=== PATIENT | male | born 1980 | race African-American/Black ===

== ENCOUNTER 2020-03-08 19:45 | Emergency (ER) | payer MEDICAID, OTHER ==
[~2020-03-08] VITALS: Ht 180.3 cm; Wt 86.2 kg
[~2020-03-08 19:45] MED LIST: IBUPROFEN600 M1 ORAL; LIDODERM700 M1 TOPIC; ROBAXIN-750750 MG PO
[2020-03-08 20:00] VITALS: BP 131/76
[2020-03-08] MEDS ORDERED: Methocarbamol 750mg tab ORAL ONE (20:30)
[2020-03-08 21:00] VITALS: BP 138/65
[2020-03-08] MEDS ORDERED: VOLTAREN100 G1 TP (21:26)
[2020-03-08] MEDS ORDERED: ROBAXIN-750750 MG PO (21:26)
[2020-03-08] MEDS ORDERED: TYLENOL EXTRA500 MG ORAL (21:26)
[2020-03-08 21:30] VITALS: BP 138/65
--- NOTE | 2020-03-08 22:05 | Emergency Room Report ---
History of Present Illness General Chief Complaint: Lower Extremity Injury Source: Patient Present Illness HPI 39 yo Male presents complaining of right leg and back pain. States that he was seen here about 10 days ago for same pain. Was prescribed medications. States it helped somewhat but has not gone away. Dull, 6 out of 10, nonradiating. Denies leg or motor weakness. Denies bowel or bladder incontinence. Pain started after lifting something heavy at work. No other aggravating relieving factors. 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 Patient History Past Medical History: none Past Surgical History: none Pertinent Family History: none Social History: Denies: smoking, alcohol use, drug use Immunizations: UTD Reviewed Nursing Documentation: PMH: Agreed; PSxH: Agreed Nursing Documentation-PMH Past Medical History: No Stated History Review of Systems All Other Systems: negative except mentioned in HPI Physical Exam Vital Signs Date Time Temp Pulse Resp B/P (MAP) Pulse Ox O2 Delivery O2 Flow Rate FiO2 03/08/20 19:56 98.1 89 19 129/89 (102) 99 Room Air Sp02 EP Interpretation: reviewed, normal General Appearance: no apparent distress, alert, GCS 15, non-toxic Head: normocephalic, atraumatic Eyes: bilateral eye normal inspection, bilateral eye PERRL ENT: hearing grossly normal, normal pharynx, no angioedema, normal voice Neck: full range of motion, supple/symm/no masses Respiratory: chest non-tender, lungs clear, normal breath sounds, speaking full sentences Cardiovascular #1: regular rate, rhythm, no edema Cardiovascular #2: 2+ carotid (R), 2+ carotid (L), 2+ radial (R), 2+ radial (L) , 2+ dorsalis pedis (R), 2+ dorsalis pedis (L) Gastrointestinal: normal bowel sounds, non tender, soft, non-distended, no guarding, no rebound Rectal: deferred Genitourinary: normal inspection, no CVA tenderness Musculoskeletal: back normal, normal range of motion, gait/station normal, tender - R buttock, R thigh Neurologic: alert, motor strength/tone normal, oriented x3, sensory intact, responsive, speech normal Psychiatric: judgement/insight normal, memory normal, mood/affect normal, no suicidal/homicidal ideation Reflexes: 3+ bicep (R), 3+ bicep (L), 3+ tricep (R), 3+ tricep (L), 3+ knee (R) , 3+ knee (L) Skin: no rash Lymphatic: no adenopathy Medical Decision Making Diagnostic Impression: Primary Impression: Low back pain Qualified Codes: M54.5 - Low back pain ER Course Hospital Course 39 yo M presents to ED c/o R hip and leg pain Differential diagnoses include: Fracture, dislocation, sprain, contusion Clinical course Patient placed on stretcher. After initial history and physical, I ordered pain medications and Xrays of R hip, femur, L spine Xrays read shows no acute fracture/dislocation. I discussed findings with patient. Pain is likely muscular. Patient would benefit from physical therapy. I will provide referrals. Safe for discharge with close outpatient follow-up Diagnosis - low back pain Stable and discharged to home. apply ice, keep elevated. weight bear as tolerated. Followup with PMD/ortho. Return to ED if symptoms recur or worsen Other X-Ray Diagnostic Results Other X-Ray Diagnostic Results #1: X-Ray ordered: Hip # of Views/Limited Vs Complete: 3 View Indication: Pain EP Interpretation: Yes Interpretation: no dislocation, no soft tissue swelling, no fractures Impression: No acute disease Electronically Signed by: Electronically signed by Danis Castillo MD Other X-Ray Diagnostic Results #2: X-Ray ordered: L spine # of Views/Limited Vs Complete: 3 View Indication: Pain EP Interpretation: Yes Interpretation: no dislocation, no soft tissue swelling, no fractures Impression: No acute disease Electronically Signed by: Electronically signed by Danis Castillo MD Other X-Ray Diagnostic Results #3: X-Ray ordered: Femur # of Views/Limited Vs Complete: 3 View Indication: Pain EP Interpretation: Yes Interpretation: no dislocation, no soft tissue swelling, no fractures Impression: No acute disease Electronically Signed by: Electronically signed by Danis Castillo MD Last Vital Signs Date Time Temp Pulse Resp B/P (MAP) Pulse Ox O2 Delivery O2 Flow Rate FiO2 03/08/20 21:30 98.3 75 18 138/65 98 Room Air Status: improved Disposition: HOME, SELF-CARE Condition: Stable Scripts Diclofenac Sodium (VOLTAREN) 100 Gm Gel..gram. 100 GM TP TID, #100 GM Prov: Danis Castillo MD 03/08/20 Methocarbamol* (ROBAXIN-750*) 750 Mg Tablet 750 MG PO TID, #21 TAB 0 Refills Prov: Danis Castillo MD 03/08/20 Acetaminophen* (TYLENOL EXTRA STRENGTH*) 500 Mg Tablet 500 MG ORAL Q8H PRN for Prn Headache/Temp > 101, #30 TAB 0 Refills Prov: Danis Castillo MD 03/08/20 Referrals: [facility] Open 24 hour /7 days a week by Appointment Only [address] [facility] [id number] Departure Forms: Return to Work Return to Work Date: Mar 10, 2020 Work Restrictions: No Heavy Lifting Danis Castillo MD Mar 08, 2020 22:05
--- NOTE | 2020-03-09 10:44 | Diagnostic Imaging Report ---
Indication: Pelvic pain Technique: One view of the pelvis Comparison: none Findings: No acute fractures. No dislocations. The joint spaces are preserved Impression: Negative
--- NOTE | 2020-03-09 15:44 | Diagnostic Imaging Report ---
Indication: Lumbar spine pain Technique: 3 views of the lumbar spine Comparison: None Findings: Bony alignment is normal. Vertebral body heights are preserved. There is degenerative change with proliferative change and mild disc space narrowing at L5-S1. The remaining disc spaces are preserved. The pedicles are intact. Sacral arches are preserved Impression: Mild degenerative changes No acute bony trauma
--- NOTE | 2020-03-09 15:47 | Diagnostic Imaging Report ---
Indications: Pain Technique: Two views of the right femur Comparison: None Findings: No acute fractures. The joint spaces are preserved. No dislocations. No radiopaque foreign body Impression: Negative
== END 2020-03-08 21:30 | disposition home or self-care (01) ==
LOC: EMR 21:04
DX: M54.5 Low back pain (principal); M79.604 Pain in right leg; R10.2 Pelvic and perineal pain
CPT/HCPCS: 72020; 72170; 73552; Z7502; 99284